=== PATIENT | female | born 1945 | race Caucasian/White ===

== ENCOUNTER 2023-02-04 17:36 | Emergency (ER) | payer MEDICARE, SELFPAY ==
[2023-02-04 17:37] VITALS: BP 128/63; PULSE 73; RESP 18; TEMP 37.2; O2SAT 94; BMI 31.5
--- NOTE | 2023-02-04 17:43 | ED.FALL1 ---
HPI - Fall General Chief Complaint: Fall Stated Complaint: FALL Time Seen by Provider: 02/04/23 17:38 Source: patient Mode of arrival: ambulance Limitations: no limitations History of Present Illness HPI Narrative: 77-year-old female presents to the emergency department for an injury to right forearm. She was caring a wine glass and she fell and the wineglass stem broke and she sustained a laceration to her right forearm. No other injury was sustained. She didn't hit her head or injure her extremities. Related Data Allergies Allergy/AdvReac Type Severity Reaction Status Date / Time metoclopramide [From Reglan] Allergy Unknown Verified 02/04/23 17:42 Penicillins Allergy sob Verified 02/04/23 17:42 Review of Systems ROS Narrative A ten point review of systems is negative except as noted above. Exam Narrative Exam Narrative: Nurses note and vital signs reviewed and patient is not hypoxic. General: The patient appears well and in no apparent distress. Patient is resting comfortably on cart. Skin: Warm, dry, no pallor noted. There is no rash noted. Head: Normocephalic, atraumatic Eye: Normal conjunctiva, no drainage Ears, Nose, Mouth, and Throat: oral mucosa is moist. Nares patent. Cardiovascular: Regular Rate and Rhythm Respiratory: Patient is in no distress, no accessory muscle use, lungs are clear to auscultation, no wheezing, rales or rhonchi Back: non-tender GI: soft and nontender Musculoskeletal: there is a 1-1/2 cm slightly irregular laceration on the right forearm. It is superficial. There is no active bleeding. Elbow and wrist have full range of motion. Neurological: A&O x4, normal speech Psychiatric: Cooperative Constitutional Vital Signs, click to edit/add: Last Vital Signs Temp 99 F 02/04/23 17:37 Pulse 73 02/04/23 17:37 Resp 18 02/04/23 17:37 BP 128/63 02/04/23 17:37 Pulse Ox 94 L 02/04/23 17:37 O2 Del Method Room Air 02/04/23 17:37 Course Vital Signs Vital signs: Vital Signs Temperature 99 F 02/04/23 17:37 Pulse Rate 73 02/04/23 17:37 Respiratory Rate 18 02/04/23 17:37 Blood Pressure 128/63 02/04/23 17:37 Pulse Oximetry 94 L 02/04/23 17:37 Oxygen Delivery Method Room Air 02/04/23 17:37 Temperature 99 F 02/04/23 17:37 Pulse Rate 73 02/04/23 17:37 Respiratory Rate 18 02/04/23 17:37 Blood Pressure 128/63 02/04/23 17:37 Pulse Oximetry 94 L 02/04/23 17:37 Oxygen Delivery Method Room Air 02/04/23 17:37 MDM - Fall MDM Narrative Medical decision making narrative: x-ray my interpretation shows no foreign body. Tetanus is updated and Steri-Strips are placed. Treatment diagnosis and follow up are discussed with the patient. Differential Diagnosis Differential diagnosis: Likely other (laceration, foreign body) Imaging Data right forearm x-ray: My impression: no foreign body Discharge Plan Discharge Chief Complaint: Fall Clinical Impression: Laceration of right forearm Patient Disposition: Home, Self-Care Time of Disposition Decision: 18:37 Condition: Good Mode of Transportation: Private Vehicle Instructions: Laceration (ED) Additional Instructions: do not get Steri-Strips wet for seven days. Allow them to fall off on their own. Stand Alone Forms: Portal Instructions Referrals: OK KEENAN [Primary Care Provider] - 1 week
[2023-02-04] MEDS: ADACEL DIPH,PERTUSS(ACELL),TET VAC/PF 0.5 ML ADULT SYRINGE IM (18:17)
--- NOTE | 2023-02-04 18:28 | XR_ITS ---
The [address] [address] Patient Name: IVONNE EVANGELISTA MRN: [id number] date: 1945 Sex: F Assigned Patient Location: ED.MAIN Current Patient Location: Accession/Order Number: [id number] Exam Date: 02/04/2023 18:22 Report Date: 02/04/2023 19:06 At the request of: IRA CORDERO Procedure: XR forearm RT 2V EXAM: XR forearm RT 2V HISTORY: rule out foreign body, glass COMPARISON: None. TECHNIQUE: 2 views FINDINGS: IMPRESSION: No radiodense foreign body, visualized fracture, dislocation, subluxation or osseous lesion. 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 Joint spaces are otherwise unremarkable. Electronically authenticated by: VANIA LEDESMA Date: 02/04/2023 19:06
[2023-02-04 18:44] VITALS: BP 118/70; PULSE 74; RESP 18; O2SAT 95
== END 2023-02-04 18:46 | disposition home or self-care (01) ==
PROVIDERS: Emergency Provider Emergency Medicine; PCP Family Medicine
DX: S51.811A Laceration without foreign body of right forearm, initial encounter (principal); Z23 Encounter for immunization; W01.110A Fall on same level from slipping, tripping and stumbling with subsequent striking against sharp glass, initial encounter
CPT/HCPCS: 73090; 90471; 90715; 99284